=== PATIENT | female | born 1995 | race Hispanic/Latino ===

== ENCOUNTER 2019-06-21 | Day surgery (SDC) | payer MEDICAID ==
[~2019-06-21] MED LIST: IBUPROFEN600 MG PO; NORCO1 TA2 PO; PRE-NATAL PO
[2019-06-21] MEDS ORDERED: PERCOCET 5/325M1 TAB PO (09:54)
[2019-06-21] MEDS ORDERED: TORADOL PO (09:54)
== END 2019-06-21 11:15 | disposition home or self-care (01) ==
DX: K80.10 Calculus of gallbladder with chronic cholecystitis without obstruction (principal); Z11.59 Encounter for screening for other viral diseases
CPT/HCPCS: J0131; J1100; J2710; Q9967